=== PATIENT | female | born 1995 | race American Indian/Alaskan Native ===

== ENCOUNTER 2016-12-25 15:31 | Emergency (ER) | payer SELFPAY ==
--- NOTE | 2016-12-25 16:54 | XRay Report ---
LEFT ANKLE RADIOGRAPHS INDICATION: Injury. COMPARISON: None similar at this institution. FINDINGS: AP, lateral and oblique left ankle radiographs demonstrate an old healed distal fibular shaft fracture. Ankle mortise, malleoli and talar dome contour appear within normal limits. Diffuse ankle soft tissue swelling noted, medial slightly more than lateral. CONCLUSION: Diffuse left ankle soft tissue swelling and old healed distal fibular shaft fracture, as described. Please correlate. Thank you for the opportunity to participate in this patient's care.
--- NOTE | 2016-12-25 20:27 | Emergency Department Report ---
HPI - General Chief Complaint: Extremity Injury, Lower Time Seen by Provider: 12/25/16 19:37 - HPI HPI: 21-year-old female presents today complaining of left ankle pain on and off 4 months. Patient states that she twisted her ankle inwards 4 months ago but was not seen for it. Patient has been icing and initially was using crutches to prevent bearing weight on that foot. Admits to ankle swelling. She states that there is swelling and pain worsens when she is standing for prolonged time. Denies history of fractures or injuries to the area. Denies numbness, weakness, paresthesias. Denies fever, chills, nausea, vomiting, chest pain, shortness of breath, abdominal pain. ED Past Medical Hx - Past Medical History Previous Medical History?: No - Surgical History Past Surgical History?: No - Medications Home Medications: Home Medications Medication Instructions Recorded Confirmed Last Taken Type Cyclobenzaprine HCl [Flexeril 5 MG 5 mg PO BID #10 tab 12/25/16 Unknown Rx TAB] Naproxen [Naprosyn] 500 mg PO BID #60 tablet 12/25/16 Unknown Rx ED Review of Systems ROS: Stated complaint: ANKLE PAIN Other details as noted in HPI Constitutional: denies: chills, fever, malaise Eyes: denies: eye pain ENT: denies: ear pain, throat pain, congestion Respiratory: denies: cough, shortness of breath, wheezing Cardiovascular: denies: chest pain, palpitations Endocrine: no symptoms reported Gastrointestinal: denies: abdominal pain, nausea, vomiting Musculoskeletal: joint swelling, arthralgia. denies: back pain Skin: denies: rash Neurological: denies: headache, weakness, numbness, paresthesias Physical Exam - Physical Exam Vital Signs: Vital Signs 12/25/16 16:22 Temperature 98.9 F Pulse Rate 84 Respiratory 18 Rate Blood Pressure 111/65 O2 Sat by Pulse 99 Oximetry Physical Exam: GENERAL: The patient is well-developed and well-nourished. Patient is in NAD. HEAD: Normocephalic. Atraumatic. NECK: Supple, nontender, without lymphadenopathy. No meningitic signs are noted. CHEST/LUNGS: Clear to auscultation throughout. HEART/CARDIOVASCULAR: Regular rate and rhythm. No murmurs, rubs or gallops. ABDOMEN: Abdomen is soft, nontender. Bowel sounds normoactive. No guarding or rebound tenderness. EXTREMITIES: Edema noted. Left ankle. Full range of motion, nonpainful. No tenderness to palpation of the ankle joint. No ecchymosis, deformity or crepitus noted. Normal sensation. Peripheral pulses intact. Capillary refill less than 2 seconds. NEURO: Alert and oriented x 3. Normal gait. ED Course Vital Signs 12/25/16 16:22 Temperature 98.9 F Pulse Rate 84 Respiratory 18 Rate Blood Pressure 111/65 O2 Sat by Pulse 99 Oximetry ED Medical Decision Making - Lab Data Vital Signs 12/25/16 16:22 Temperature 98.9 F Pulse Rate 84 Respiratory 18 Rate Blood Pressure 111/65 O2 Sat by Pulse 99 Oximetry - Radiology Data Radiology results: report reviewed LEFT ANKLE RADIOGRAPHS INDICATION: Injury. COMPARISON: None similar at this institution. FINDINGS: AP, lateral and oblique left ankle radiographs demonstrate an old healed distal fibular shaft fracture. Ankle mortise, malleoli and talar dome contour appear within normal limits. Diffuse ankle soft tissue swelling noted, medial slightly more than lateral. CONCLUSION: Diffuse left ankle soft tissue swelling and old healed distal fibular shaft fracture, as described. Please correlate. Thank you for the opportunity to participate in this patient's care. - Medical Decision Making 21-year-old female presents today complaining of left ankle pain post injury that occurred 4 months ago. Her x-ray results reveal diffuse left ankle soft tissue swelling and old healed distal fibular shaft fracture. Patient is in no acute distress at this time. She will be discharged home and is encouraged to follow up with a primary care provider. She has been provided with a referral for orthopedic to follow-up with. She will be sent home on Naprosyn and extra and is encouraged to return to the emergency room for any worsening symptoms. Critical care attestation.: If time is entered above; I have spent that time in minutes in the direct care of this critically ill patient, excluding procedure time. ED Disposition Clinical Impression: Fibula fracture Qualifiers: Encounter type: initial encounter Fibula location: distal Fracture type: closed Fracture morphology: unspecified fracture morphology Laterality: left Qualified Code(s): S82.832A - Other fracture of upper and lower end of left fibula, initial encounter for closed fracture Ankle sprain Qualifiers: Encounter type: initial encounter Involved ligament of ankle: unspecified ligament Laterality: left Qualified Code(s): S93.402A - Sprain of unspecified ligament of left ankle, initial encounter Disposition: TO HOME OR SELFCARE Is pt being admited?: No Does the pt Need Aspirin: No Condition: Stable Instructions: Ankle Fracture (ED), Ankle Sprain (ED), Ankle Exercises (GEN) Additional Instructions: Follow-up with primary care provider and orthopedic. Return to the emergency department if symptoms worsen. Prescriptions: Cyclobenzaprine HCl [Flexeril 5 MG TAB] 5 mg PO BID #10 tab Naproxen [Naprosyn] 500 mg PO BID #60 tablet Referrals: PRIMARY MD ADELINE [Primary Care Provider] - 3-5 Days SHARA CHAUDHRY MD [Staff Physician] - 3-5 Days Forms: Work/School Release Form(ED) Time of Disposition: 20:28
[2016-12-25 20:45] VITALS: BP 130/87
== END 2016-12-25 20:45 | disposition home or self-care (01) ==
LOC: ED 15:31
DX: S82.832A Other fracture of upper and lower end of left fibula, initial encounter for closed fracture (principal); S93.402A Sprain of unspecified ligament of left ankle, initial encounter; X50.9XXA Other and unspecified overexertion or strenuous movements or postures, initial encounter; Y93.9 Activity, unspecified; Y92.9 Unspecified place or not applicable; Y99.9 Unspecified external cause status